=== PATIENT | female | born 1935 | race Caucasian/White ===

== ENCOUNTER 2017-12-28 17:20 | Emergency (ER) | payer MEDICARE ==
[2017-12-28 17:38] VITALS: TEMP 97.3
--- NOTE | 2017-12-28 17:51 | C.PDOC ---
History Of Present Illness 82 year old female, whose PMHx includes HTN (uncertain medicine compliance), presents to the ED for evaluation of headache and dizziness which began earlier today. Patient was upstairs on the floor, visiting her who is sick. She denies fever, chills, and has no other complaints at this time. Time Seen by Provider: 12/28/17 17:47 Chief Complaint (Nursing): High Blood Pressure History Per: Patient History/Exam Limitations: no limitations Onset/Duration Of Symptoms: Hrs Current Symptoms Are (Timing): Still Present Associated Symptoms: Dizziness, Headache Additional History Per: Patient Past Medical History Reviewed: Historical Data, Nursing Documentation, Vital Signs Vital Signs: Last Vital Signs Temp 97.3 F L 12/28/17 17:35 Pulse 78 12/28/17 19:53 Resp 20 12/28/17 19:53 BP 160/74 H 12/28/17 19:53 Pulse Ox 100 12/28/17 19:53 - Medical History PMH: HTN Family History: States: Unknown Family Hx - Social History Hx Alcohol Use: No Hx Substance Use: No - Immunization History Hx Tetanus Toxoid Vaccination: No Hx Influenza Vaccination: No Hx Pneumococcal Vaccination: No Review Of Systems Constitutional: Negative for: Fever, Chills Neurological: Positive for: Headache, Dizziness Physical Exam - Physical Exam Appears: Non-toxic, No Acute Distress Skin: Normal Color, Warm, Dry Head: Atraumatic, Normacephalic Eye(s): bilateral: Normal Inspection Oral Mucosa: Moist Neck: Supple Chest: Symmetrical, No Deformity, No Tenderness Cardiovascular: Rhythm Regular, No Murmur Respiratory: Normal Breath Sounds, No Rales, No Rhonchi, No Wheezing Extremity: Normal ROM, Capillary Refill (less than 2 seconds ) Neurological/Psych: Oriented x3, Normal Speech, Normal Cognition Gait: Steady ED Course And Treatment - Laboratory Results Result Diagrams: 12/28/17 17:59 12/28/17 17:59 ECG: Interpreted By Me, Viewed By Me ECG Rhythm: Sinus Rhythm Interpretation Of ECG: Normal Sinus Rhythm at rate 72bpm. No ST/T wave changes. Rate From EC O2 Sat by Pulse Oximetry: 99 (on RA ) Pulse Ox Interpretation: Normal Medical Decision Making Medical Decision Making: r/o htn urgency vs emergency - labs pending Progress: Bloodwork, EKG, CT Head ordered and reviewed. Apresoline IVP administered. pt reassesed b/p decresasing. pt states she feels well. asking for dc. neuro intact. Disposition - Disposition Disposition: HOME/ ROUTINE Disposition Time: 19:41 Condition: STABLE Additional Instructions: please follow up with your doctor. return to er with worsening symptoms or concerns. Prescriptions: Lisinopril [Zestril] 40 mg PO DAILY #10 tab Instructions: High Blood Pressure (DC), Dizziness, Nonvertigo, (DC) Forms: [employer] ([employer]) - Clinical Impression Clinical Impression: Hypertension, Dizziness - Scribe Statement The provider has reviewed the documentation as recorded by the Scribe (Susan Carney) Provider Attestation: All medical record entries made by the Scribe were at my direction and personally dictated by me. I have reviewed the chart and agree that the record accurately reflects my personal performance of the history, physical exam, medical decision making, and the department course for this patient. I have also personally directed, reviewed, and agree with the discharge instructions and disposition.
[2017-12-28 18:01] LABS: BASO # 0.1 K/uL (0.0-0.2); BASO % 0.9 % (0.0-2.0); EOS # 0.1 K/uL (0.0-0.7); EOS % 1.2 % (0.0-4.0); HEMOGLOBIN 12.6 g/dL (11.0-16.0); LYMPH # 2.4 K/uL (1.0-4.3); LYMPH % 37.4 % (20.0-40.0); MEAN CELL VOLUME 86.9 fL (81.0-99.0); MEAN CORPUSCULAR HEMOGLOBIN 28.9 pg (27.0-31.0); MEAN CORPUSCULAR HGB CONC 33.3 g/dL (33.0-37.0); MEAN PLATELET VOLUME 9.1 fL (7.2-11.7); MONO # 0.5 K/uL (0.0-0.8); MONO % 7.3 % (0.0-10.0); NEUT # 3.5 K/uL (1.8-7.0); NEUT % 53.2 % (50.0-75.0); NRBC % 0.1 % (0.0-2.0); RBC 4.35 Mil/uL (3.80-5.20); WHITE BLOOD COUNT 6.5 K/uL (4.8-10.8)
[2017-12-28 18:09] LABS: INR 0.9; PROTHROMBIN TIME 9.4 SECONDS (9.7-12.2)
[2017-12-28 18:14] LABS: GFR AFRICAN-AMERICAN > 60; GFR NON-AFRICAN AMERICAN 53
[2017-12-28 18:15] LABS: ALBUMIN 4.4 g/dL (3.5-5.0); BLOOD UREA NITROGEN 21 mg/dL (7-17)
[2017-12-28 18:16] LABS: ALB/GLOB RATIO 1.2 (1.0-2.1); ALT/SGPT 16 U/L (9-52); AST/SGOT 39 U/L (14-36)
--- NOTE | 2017-12-28 18:57 | CT ---
PROCEDURE: CT HEAD WITHOUT CONTRAST. HISTORY: Headache COMPARISON: None available. TECHNIQUE: Axial computed tomography images were obtained through the head/brain without intravenous contrast. Note that the examination is limited due to significant streak and beam hardening artifact which mm arises from metallic dear ring and results in streak and beam hardening artifact partially obscuring the level of the inferior the facial soft tissues more so on the right side as well as a portion of the foramen magnum and contents. Radiation dose: Total exam DLP = 670.94 mGy-cm. This CT exam was performed using one or more of the following dose reduction techniques: Automated exposure control, adjustment of the mA and/or kV according to patient size, and/or use of iterative reconstruction technique. FINDINGS: HEMORRHAGE: No acute parenchymal, subarachnoid or extra-axial hemorrhage. BRAIN: There are mild to moderate diffuse/confluent chronic periventricular white matter ischemic changes seen extending peripherally into the deep and subcortical white matter both cerebral hemispheres. Additionally, scattered chronic bilateral basal nuclei lacunar type infarcts also felt to be present. There is moderate central volume loss evidenced by disproportionate enlargement of the ventricles compared the sulci Mild vascular calcifications. VENTRICLES: Hydrocephalus ex vacuo. CALVARIUM: No acute calvarial fractures PARANASAL SINUSES: Unremarkable as visualized. No significant inflammatory changes. MASTOID AIR CELLS: Unremarkable as visualized. No inflammatory changes. OTHER FINDINGS: None. IMPRESSION: Slightly limited study due to crossing streak and beam hardening artifact as detailed above. No acute intracranial hemorrhage. Mild chronic white matter and basal nuclei ischemic changes. Moderate to fairly significant central volume loss.
[2017-12-28 19:54] VITALS: BP 160/74; PULSE 78; RESP 20
[2017-12-28 21:13] VITALS: O2SAT 99
== END 2017-12-28 20:05 | disposition home or self-care (01) ==
LOC: C.ER 17:20
DX: I10 Essential (primary) hypertension (principal); R42 Dizziness and giddiness
CPT/HCPCS: 70450; 80053; 84484; 85025; 85610; 85730; 96374; 99285; J0360

== ENCOUNTER 2018-12-25 22:19 | Inpatient (IN) | payer MEDICARE ==
--- NOTE | 2018-12-25 22:59 | C.PDOC ---
History Of Present Illness 83 year old female is brought to the ED by EMS for evaluation. Patient was found on the floor of her home by EMS. Patient's neighbors have not seen her all day and called EMS. Patient usually more active and self caring. Patient denies OC, however reports tripping and falling sustained abrasion to tight shoulder and hip. Patient incontinent of urine, reports she was unable to get up and move to go to the bathroom. Patient denies fever, chills, nausea, vomit, weakness, numbness. Time Seen by Provider: 12/25/18 22:59 Chief Complaint (Nursing): Medical Clearance History Per: Patient, EMS History/Exam Limitations: no limitations Onset/Duration Of Symptoms: Hrs Current Symptoms Are (Timing): Still Present Recent travel outside of the [place]: No Additional History Per: Patient, EMS Past Medical History Reviewed: Historical Data, Nursing Documentation, Vital Signs Vital Signs: Last Vital Signs Temp 97.8 F 12/25/18 22:37 Pulse 81 12/25/18 22:37 Resp 22 12/25/18 22:37 BP 150/87 12/25/18 22:37 Pulse Ox 97 12/25/18 22:37 - Medical History PMH: HTN Surgical History: No Surg Hx Family History: States: Unknown Family Hx - Social History Hx Alcohol Use: No Hx Substance Use: No - Immunization History Hx Tetanus Toxoid Vaccination: No Hx Influenza Vaccination: No Hx Pneumococcal Vaccination: No Review Of Systems Constitutional: Positive for: Malaise. Negative for: Fever, Chills Cardiovascular: Negative for: Chest Pain, Palpitations Respiratory: Negative for: Shortness of Breath Gastrointestinal: Negative for: Nausea, Vomiting, Abdominal Pain Genitourinary: Positive for: Incontinence Musculoskeletal: Positive for: Shoulder Pain, Leg Pain Skin: Negative for: Rash Neurological: Negative for: Weakness, Numbness, Headache, Dizziness Physical Exam - Physical Exam Appears: Non-toxic, Other (cachectic) Skin: Warm, Dry, Other (poor turgor) Head: Normacephalic Eye(s): bilateral: Normal Inspection, PERRL, EOMI Oral Mucosa: Moist Neck: Supple Chest: Symmetrical Cardiovascular: Rhythm Regular Respiratory: No Rales, No Rhonchi, No Wheezing Gastrointestinal/Abdominal: Soft, No Tenderness, No Guarding, No Rebound Extremity: Tenderness (right shoulder), Capillary Refill (< 2 seconds), No Swelling, Other (right shoulder and right hip abrasions) Extremity: Bilateral: Normal ROM Pulses: Left Dorsalis Pedis: Normal, Right Dorsalis Pedis: Normal Neurological/Psych: Oriented x3, Normal Speech, Normal Cognition Gait: Unable To Assess ED Course And Treatment - Laboratory Results Result Diagrams: 12/25/18 23:59 12/25/18 23:59 ECG: Interpreted By Me, Viewed By Me ECG Rhythm: Sinus Rhythm (82), Nonspecific Changes O2 Sat by Pulse Oximetry: 97 (On RA) Pulse Ox Interpretation: Normal - Radiology CXR: Interpreted by Me, Viewed By Me CXR Interpretation: No: Infiltrates, Fracture, Pnemothorax - Other Rad humerus X-Ray: Interpreted by Me, Viewed By Me Interpretation: no fx or dislocation - CT Scan/US CT head Other Rad Studies (CT/US): Read By Radiologist, Radiology Report Reviewed CT/US Interpretation: CT scan of the head. CLINICAL HISTORY: Fall. TECHNIQUE: Multiple axial CT images were obtained through the brain without IV contrast material. COMMENTS: There is normal configuration of sella turcica. There are no intra or extra-axial collections. There is no mass effect or midline shift. There is no evidence of hematoma formation. No hydrocephalus is present. The ventricles are symmetrical. No abnormal calcifications are present. There is diffuse age-appropriate cerebellar and cerebral atrophy with proportionally d ilated ventricles and cortical sulci. There are bilateral periventricular and subcortical white matter hypolucencies compatible with mild chronic microvascular disease. Otherwise, no significant focal abnormalities are seen either in the posterior fossa or supratentorial compartment. IMPRESSION: 1. Age-appropriate cerebellar and cerebral atrophy. 2. Mild chronic microvascular disease. 3. No evidence of acute intracranial pathology. Thank you for your kind referral of this patient. . Electronically signed on Dec 26, 2018 2:34:57 AM EDT by: Noe Sutton M.D., Certified by DAPHNE, MSK, Neuroradiology CT Other Rad Studies (CT/US): Read By Radiologist, Radiology Report Reviewed CT/US Interpretation: CT OF THE CHEST WITH IV CONTRAST. CLINICAL HISTORY: Trauma. TECHNIQUE: Axial and reformatted sagittal and coronal images of the chest obtained after bolus IV contrast administration. FINDINGS: Moderate osteopenia of the bones. Acute compression fracture of T12 vertebral body. The maximum loss of height is estimated at 86%. Secondary mild retropulsion of the posterior of T11. Subsequent 15% narrowing of the corresponding aspect of the spinal canal without high-grade stenosis or significant compression of the adjacent fat. Enlargement pulmonary arteries suggestive of pulmonary arterial hypertension. Mild cardiomegaly. Normal enhancement of the main pulmonary artery and right and left pulmonary arteries. Normal enhancement of the bilateral peripheral pulmonary arteries. There is no demonstrated pulmonary em bolism. Normal thoracic aorta and visualized great vessels. There is no demonstrated aortic dissection. Normal pericardium. Normal mediastinum. Normal hilar regions. Normal visualized trachea and thickened bronchi. Bilateral basilar atelectatic pulmonary changes. Normal pleura. Normal chest wall structures. Normal osseous structures. Normal visualized upper abdomen. IMPRESSION: Severe acute compression fracture of T11. Osteopenia. Cardiomegaly. Small sliding-type hernia. Bilateral basilar atelectatic changes. Bronchitis, probably chronic. CT SCAN OF THE ABDOMEN AND PELVIS WITH CONTRAST. CLINICAL HISTORY: Abdominal pain. Fall. TECHNIQUE: Multiple axial and coronal CT images were obtained through the abdomen and pelvis after administration of intravenous contrast material. COMMENTS: 4.7 cm left renal simple cyst. Mild osteopenia. Moderate chronic compression deformity of L3 vertebral body with a maximum loss of height estimated at 41%. Moderate amount of fecal residue is noted in the large bowel, constipation. The liver is of uniform attenuation without mass or defect. There is no intra or extrahepatic biliary ductal dilatation. The spleen is normal. The gallbladder is within normal limits. The pancreas is of normal contour and attenuation characteristics . There is no evidence of adrenal mass. Both kidneys demonstrate prompt and equal nephrograms. The kidneys are normal in size, shape and configuration. There is no evidence of renal or ureteral mass. No renal or ureteral calculi are identified. There is no hydroureter or hydronephrosis. No evidence for appendicitis. There is no bowel wall thickening. No evidence for small or large bowel obstruction. There is no evidence of abdominal ascites or lymphadenopathy. There is no evidence of intrinsic or extrinsic bladder mass. There is no pelvic ascites or lymphadenopathy. Images of the lung bases show no evidence of pleural or parenchymal mass. There are no pleural effusions. The bony structures are free of lytic or blastic lesions. IMPRESSION: No evidence of acute abdominal or pelvic pathology. Thank you for your kind referral of this patient. . Electronically signed on Dec 26, 2018 3:16:23 AM EDT by: Noe Sutton M.D., Certified by ABR, MSK, Neuroradiology Progress Note: Plan: - Labs. - CT head. - CT chest. - EKG. - Labs. - CXR. - IV fluids. - UA Disposition Discussed With Dr.: Alejandro Valdivia Comment: accepted the pt on his service and took over the care at 4:21 AM Doctor Will See Patient In The: Hospital Counseled Patient/Family Regarding: Studies Performed, Diagnosis - Disposition Disposition: HOSPITALIZED Disposition Time: 22:59 Condition: FAIR Forms: [employer] ([employer]) - POA Present On Arrival: Falls Or Trauma - Clinical Impression Clinical Impression: Fall, Rhabdomyolysis, Compression fracture of T11 vertebra, Ambulatory dysfunction, Dehydration - Scribe Statement The provider has reviewed the documentation as recorded by the Scribe Iglesia Banks All medical record entries made by the Scribe were at my direction and personally dictated by me. I have reviewed the chart and agree that the record accurately reflects my personal performance of the history, physical exam, medical decision making, and the department course for this patient. I have also personally directed, reviewed, and agree with the discharge instructions and disposition. Decision To Admit - Pt Status Changed To: Hospital Disposition Of: Inpatient - Admit Certification Admit to Inpatient:: After my assessment, the patient will require hospitalization for at least two midnights. This is because of the severity of symptoms shown, intensity of services needed, and/or the medical risk in this patient being treated as an outpatient. - InPatient: Physician Admission Certification: I certify that this patient requires 2 or more midnights of care for the following reason:: After my assessment, the patient will require hospitalization for at least two midnights. This is because of the severity of symptoms shown, intensity of services needed, and/or the medical risk in this patient being treated as an outpatient. - . Bed Request Type: Telemetry Admitting Physician: Alejandro Valdivia Patient Diagnosis: Fall, Rhabdomyolysis, Compression fracture of T11 vertebra, Ambulatory dysfunction, Dehydration
[2018-12-25] MEDS ORDERED: Sodium Chloride 0.9% 1,000 ML IV SCH (23:15)
[2018-12-25] MEDS ORDERED: Iodixanol 320 MG/ML 100 ML BOTTLE IV ONE (23:47)
[2018-12-26 00:24] LABS: BASO % 0.2 % (0.0-2.0); HEMOGLOBIN 14.4 g/dL (11.0-16.0); LYMPH # 0.5 K/uL (1.0-4.3); LYMPH % 4.5 % (20.0-40.0); MEAN CORPUSCULAR HEMOGLOBIN 29.5 pg (27.0-31.0); MEAN CORPUSCULAR HGB CONC 33.2 g/dL (33.0-37.0); MEAN PLATELET VOLUME 9.2 fL (7.2-11.7); MONO # 0.6 K/uL (0.0-0.8); NEUT # 10.9 K/uL (1.8-7.0); NEUT % 90.3 % (50.0-75.0); NRBC % 0.1 % (0.0-2.0); PLATELET COUNT 267 K/uL (130-400); RBC 4.88 Mil/uL (3.80-5.20)
[2018-12-26 00:35] LABS: PROTHROMBIN TIME 11.9 SECONDS (9.7-12.2)
[2018-12-26 00:36] LABS: INR 1.1; MEAN CELL VOLUME 88.9 fL (81.0-99.0); WHITE BLOOD COUNT 12.1 K/uL (4.8-10.8)
[2018-12-26 00:41] LABS: VENOUS BLOOD GAS BASE EXCESS 2.2 mmol/L (0.0-2.0); VENOUS BLOOD GAS PCO2 43 mmHg (40-60); VENOUS BLOOD GAS PO2 25 mm/Hg (30-55); VENOUS BLOOD PH 7.41 (7.32-7.43)
[2018-12-26 00:56] LABS: HYPERSEGMENTATION PRESENT; LYMPHOCYTE 5 % (20-40); MONOCYTE 7 % (0-10); NEUTROPHIL 88 % (50-75); PLATELET ESTIMATE NORMAL (NORMAL); TOTAL CELLS COUNTED 100
[2018-12-26 01:20] LABS: ALB/GLOB RATIO 1.4 (1.0-2.1); ALBUMIN 4.7 g/dL (3.5-5.0); CALCIUM 10.1 mg/dl (8.6-10.4)
[2018-12-26] MEDS ORDERED: Sodium Chloride 0.9% 1,000 ML IV SCH (01:42)
[2018-12-26] MEDS: Lactated Ringer's 1,000 ML IV SCH ×3 (04:50→21:08)
--- NOTE | 2018-12-26 08:19 | RAD ---
PROCEDURE: Radiographs of the right humerus. HISTORY: fall COMPARISON: None. FINDINGS: BONES: Generalized osteopenia.. No fracture or focal lesion. Mild spurring at the elbow level. SOFT TISSUES: Normal. OTHER FINDINGS: None. IMPRESSION: No fracture or dislocation. Generalized osteopenia and degenerative changes-elbow level Comments: No preliminary ER impression at this time. stacie
--- NOTE | 2018-12-26 08:21 | RAD ---
Date of service: 12/26/2018 HISTORY: r/o infiltrate bed 12 COMPARISON: No prior. FINDINGS: LUNGS: No active pulmonary disease. PLEURA: No significant pleural effusion identified, no pneumothorax apparent. CARDIOVASCULAR: There is presence of aortic atherosclerotic calcification on x-ray. Tortuous thoracic aorta. Mild cardiomegaly no pulmonary vascular congestion. OSSEOUS STRUCTURES: Generalized osteopenia. Bilateral shoulder arthrosis. VISUALIZED UPPER ABDOMEN: Normal. OTHER FINDINGS: None. IMPRESSION: No consolidation. Top-normal right hilar markings probably within normal limits. Other findings as above.
--- NOTE | 2018-12-26 08:24 | CT ---
Date of service: 12/26/2018 PROCEDURE: CT HEAD WITHOUT CONTRAST. HISTORY: Headache. Evaluate for hemorrhage. COMPARISON: None available. TECHNIQUE: Axial computed tomography images were obtained through the head/brain without intravenous contrast. Radiation dose: Total exam DLP = 1143.03 mGy-cm. This CT exam was performed using one or more of the following dose reduction techniques: Automated exposure control, adjustment of the mA and/or kV according to patient size, and/or use of iterative reconstruction technique. FINDINGS: HEMORRHAGE: No intracranial hemorrhage. BRAIN: No mass effect or edema. Scattered focal lucencies in the subcortical and periventricular white matter suggestive for chronic microvascular ischemic change. Diffuse generalized parenchymal atrophy. Hydrocephalus ex vacuo. Bilateral basal ganglia lacunar infarcts. VENTRICLES: Hydrocephalus ex vacuo. CALVARIUM: Unremarkable. PARANASAL SINUSES: Unremarkable as visualized. No significant inflammatory changes. MASTOID AIR CELLS: Unremarkable as visualized. No inflammatory changes. OTHER FINDINGS: Atherosclerotic intracranial arterial calcifications. IMPRESSION: Diffuse generalized parenchymal volume loss. Chronic microvascular ischemic change. Hydrocephalus ex vacuo. Bilateral basal ganglia lacunar infarcts. If symptoms persists, consider correlation with MRI. A preliminary report was generated at 2:34 a.m. on 12/26/[address] Noe Sutton from [employer]
[2018-12-26] MEDS: Enoxaparin 40 mg Syringe SC SCH (10:29)
[2018-12-26 11:24] LABS: BASO % 0.3 % (0.0-2.0); EOS % 0.2 % (0.0-4.0); HEMOGLOBIN 13.6 g/dL (11.0-16.0); LYMPH # 1.6 K/uL (1.0-4.3); LYMPH % 12.5 % (20.0-40.0); MEAN CELL VOLUME 90.3 fL (81.0-99.0); MEAN CORPUSCULAR HEMOGLOBIN 29.9 pg (27.0-31.0); MEAN CORPUSCULAR HGB CONC 33.1 g/dL (33.0-37.0); MEAN PLATELET VOLUME 9.4 fL (7.2-11.7); MONO # 1.1 K/uL (0.0-0.8); MONO % 8.8 % (0.0-10.0); NEUT % 78.2 % (50.0-75.0); RBC 4.55 Mil/uL (3.80-5.20); RED CELL DISTRIBUTION WIDTH 14.1 % (11.5-14.5); WHITE BLOOD COUNT 12.7 K/uL (4.8-10.8)
[2018-12-26 12:58] LABS: ALB/GLOB RATIO 1.4 (1.0-2.1); ALBUMIN 4.3 g/dL (3.5-5.0); CALCIUM 9.9 mg/dl (8.6-10.4)
--- NOTE | 2018-12-26 13:52 | CT ---
Date of service: 12/26/2018 PROCEDURE: CT Chest, Abdomen and Pelvis with intravenous contrast HISTORY: fall COMPARISON: None available. TECHNIQUE: IV dose administered: 100 cc of Visipaque Radiation dose: Total exam DLP = 422.35 mGy-cm. This CT exam was performed using one or more of the following dose reduction techniques: Automated exposure control, adjustment of the mA and/or kV according to patient size, and/or use of iterative reconstruction technique. FINDINGS: CT CHEST WITH CONTRAST: LUNGS: Clear. No nodule, mass or consolidation. There is some linear scarring in the right middle lobe. MEDIASTINUM: Unremarkable. Normal caliber aorta and pulmonary arterial trunk. No aortic dissection. Normal size heart. Aortic calcification LYMPH NODES: Unremarkable. PLEURA: Unremarkable. No pneumothorax. No pleural fluid. BONES: There is a severe compression fracture of T11. This is probably acute. There are no prior studies for comparison. There is a mild compression deformity of L3 OTHER FINDINGS: None. CT ABDOMEN AND PELVIS: LIVER: Unremarkable. No gross lesion or ductal dilatation. GALLBLADDER AND BILE DUCTS: Unremarkable. PANCREAS: Unremarkable. No gross lesion or ductal dilatation. SPLEEN: Unremarkable. ADRENALS: Unremarkable. No mass. KIDNEYS AND URETERS: Unremarkable. No hydronephrosis. No solid mass. VASCULATURE: No aortic atherosclerotic calcification or mural plaque present. Unremarkable. No aortic aneurysm. BOWEL: Unremarkable. No obstruction. No gross mural thickening. APPENDIX: Normal appendix. PERITONEUM: Unremarkable. No free fluid. No free air. LYMPH NODES: Unremarkable. No enlarged lymph nodes. BLADDER: Unremarkable. REPRODUCTIVE: Unremarkable. BONES: As above OTHER FINDINGS: The report concurs with the preliminary [facility] report IMPRESSION: There is a severe compression fracture of T11. This is probably acute. There are no prior studies for comparison. There is a mild compression deformity of L3
--- NOTE | 2018-12-26 18:52 | CARD ---
APPROVED REPORT Date of service: 12/25/2018 EKG Measurement Heart [id number] <Conclusion> Normal sinus rhythm Nonspecific ST and T wave abnormality Abnormal ECG
[2018-12-26 20:51] LABS: SQUAMOUS EPITHIAL 5 /hpf (0-5); URINE BILIRUBIN NEGATIVE (NEGATIVE); URINE BLOOD 2+ (NEGATIVE); URINE CLARITY Hazy (Clear); URINE COLOR Amber (YELLOW); URINE GLUCOSE (UA) NORMAL (Normal); URINE LEUKOCYTE ESTERASE NEG Leu/uL (Negative); URINE PROTEIN 2+ mg/dL (NEGATIVE)
--- NOTE | 2018-12-26 22:54 | CP.PCM.HP ---
Present on Admission - Present on Admission Any Indicators Present on Admission: No Past Patient History - Past Medical History & Family History Past Medical History?: Yes - Past Social History Smoking Status: unable to - CARDIAC Hx Hypertension: Yes - MUSCULOSKELETAL/RHEUMATOLOGICAL Hx Falls: No - PSYCHIATRIC Hx Substance Use: No - SURGICAL HISTORY Hx Surgeries: No - ANESTHESIA Hx Anesthesia: No Hx Anesthesia Reactions: No Hx Malignant Hyperthermia: No Has any member of the family had a problem w/ anesthesia?: No Meds Allergies/Adverse Reactions: Allergies Allergy/AdvReac Type Severity Reaction Status Date / Time No Known Allergies Allergy Verified 12/28/17 17:34 Results - Vital Signs Recent Vital Signs: Last Vital Signs Temp 98 F 12/26/18 15:00 Pulse 93 H 12/26/18 15:00 Resp 20 12/26/18 15:00 BP 108/53 L 12/26/18 15:00 Pulse Ox 96 12/26/18 15:00 - Labs Result Diagrams: 12/26/18 11:11 12/26/18 11:11 Labs: Laboratory Results - last 24 hr 12/25/18 12/25/18 12/25/18 23:09 23:59 23:59 WBC 12.1 H D RBC 4.88 Hgb 14.4 Hct 43.4 MCV 88.9 D MCH 29.5 MCHC 33.2 RDW 14.0 Plt Count 267 MPV 9.2 Neut % (Auto) 90.3 H Lymph % (Auto) 4.5 L [place] % (Auto) 5.0 Eos % (Auto) 0.0 Baso % (Auto) 0.2 Neut # (Auto) 10.9 H Lymph # (Auto) 0.5 L [place] # (Auto) 0.6 Eos # (Auto) 0.0 Baso # (Auto) 0.0 Neutrophils % (Manual) 88 H Lymphocytes % (Manual) 5 L Monocytes % (Manual) 7 Hypersegmented Polys Present Platelet Estimate Normal PT 11.9 INR 1.1 APTT 31 pO2 VBG pH VBG pCO2 VBG HCO3 VBG Total CO2 VBG O2 Sat (Calc) VBG Base Excess VBG Potassium Glucose Lactate Crit Value Called To Crit Value Called By Crit Value Read Back Blood Gas Notified Time Sodium Potassium Chloride Carbon Dioxide Anion Gap BUN Creatinine Est GFR ( Amer) Est GFR (Non-Af Amer) Random Glucose Calcium Magnesium Total Bilirubin AST ALT Alkaline Phosphatase Total Creatine Kinase Total Protein Albumin Globulin Albumin/Globulin Ratio Lipase Venous Blood Potassium Urine Color Urine Clarity Urine pH Ur Specific [place] Urine Protein Urine Glucose (UA) Urine Ketones Urine Blood Urine Nitrate Urine Bilirubin Urine Urobilinogen Ur Leukocyte Esterase Urine WBC (Auto) Urine RBC (Auto) Ur Squamous Epith Cells Blood Type A POSITIVE Antibody Screen Negative 12/25/18 12/26/18 12/26/18 23:59 00:29 11:11 WBC 12.7 H RBC 4.55 Hgb 13.6 Hct 41.1 MCV 90.3 MCH 29.9 MCHC 33.1 RDW 14.1 Plt Count 262 MPV 9.4 Neut % (Auto) 78.2 H Lymph % (Auto) 12.5 L [place] % (Auto) 8.8 Eos % (Auto) 0.2 Baso % (Auto) 0.3 Neut # (Auto) 10.0 H Lymph # (Auto) 1.6 [place] # (Auto) 1.1 H Eos # (Auto) 0.0 Baso # (Auto) 0.0 Neutrophils % (Manual) Lymphocytes % (Manual) Monocytes % (Manual) Hypersegmented Polys Platelet Estimate PT INR APTT pO2 25 L VBG pH 7.41 VBG pCO2 43 VBG HCO3 25.2 VBG Total CO2 28.6 H VBG O2 Sat (Calc) 47.0 VBG Base Excess 2.2 H VBG Potassium 7.1 H* Glucose 136 H Lactate 1.8 Crit Value Called To Melyssa roach rn Crit Value Called By Vanessa castro rt Crit Value Read Back Y Blood Gas Notified Time 41 Sodium 142 138.0 Potassium 3.7 Chloride 102 107.0 Carbon Dioxide 26 Anion Gap 18 BUN 44 H Creatinine 1.1 Est GFR ( Amer) 57 Est GFR (Non-Af Amer) 47 Random Glucose 151 H D Calcium 10.1 Magnesium 2.5 H Total Bilirubin 1.4 H AST 53 H D ALT 19 Alkaline Phosphatase 71 Total Creatine Kinase 692 H Total Protein 8.0 Albumin 4.7 Globulin 3.3 Albumin/Globulin Ratio 1.4 Lipase 78 Venous Blood Potassium 7.1 H* Urine Color Urine Clarity Urine pH Ur Specific [place] Urine Protein Urine Glucose (UA) Urine Ketones Urine Blood Urine Nitrate Urine Bilirubin Urine Urobilinogen Ur Leukocyte Esterase Urine WBC (Auto) Urine RBC (Auto) Ur Squamous Epith Cells Blood Type Antibody Screen 03/20/19 03/20/19 11:11 20:34 WBC RBC Hgb Hct MCV MCH MCHC RDW Plt Count MPV Neut % (Auto) Lymph % (Auto) [place] % (Auto) Eos % (Auto) Baso % (Auto) Neut # (Auto) Lymph # (Auto) [place] # (Auto) Eos # (Auto) Baso # (Auto) Neutrophils % (Manual) Lymphocytes % (Manual) Monocytes % (Manual) Hypersegmented Polys Platelet Estimate PT INR APTT pO2 VBG pH VBG pCO2 VBG HCO3 VBG Total CO2 VBG O2 Sat (Calc) VBG Base Excess VBG Potassium Glucose Lactate Crit Value Called To Crit Value Called By Crit Value Read Back Blood Gas Notified Time Sodium 141 Potassium 3.8 Chloride 105 Carbon Dioxide 24 Anion Gap 16 BUN 50 H Creatinine 1.2 Est GFR ( Amer) 52 Est GFR (Non-Af Amer) 43 Random Glucose 121 H Calcium 9.9 Magnesium Total Bilirubin 1.2 AST 41 H D ALT 23 Alkaline Phosphatase 66 Total Creatine Kinase 455 H Total Protein 7.5 Albumin 4.3 Globulin 3.1 Albumin/Globulin Ratio 1.4 Lipase Venous Blood Potassium Urine Color Lindy Urine Clarity Hazy Urine pH 5.0 Ur Specific [place] 1.030 Urine Protein 2+ H Urine Glucose (UA) Normal Urine Ketones Trace Urine Blood 2+ H Urine Nitrate Negative Urine Bilirubin Negative Urine Urobilinogen 2.0 H Ur Leukocyte Esterase Neg Urine WBC (Auto) 3 Urine RBC (Auto) 14 H Ur Squamous Epith Cells 5 Blood Type Antibody Screen
--- NOTE | 2018-12-27 07:24 | HP ---
CHIEF COMPLAINT: The patient was found on the floor by EMS. HISTORY OF PRESENT ILLNESS: This is an 83-year-old white female who is currently confused. She is disoriented to time, place, person, and no details are available. No family member is available, and according to the EMS, the patient was found on the floor by EMS. The patient's neighbors did not see her for the last one day and they called ambulance and the patient was brought into the emergency room. She is confused. She is restless. She is not eating, drinking, no fever. No signs of respiratory distress. The patient has been able to take activities of daily living on herself, and according to some information provided by the patient, she tripped and fell and she sustained a bruise to the right shoulder and hip. The patient is incontinent of urine and she is not able to give any further information, but as per ER, there is no history of nausea, vomiting, fever, chills, rigors reported. No further details obtainable. PAST MEDICAL HISTORY: Hypertension. SOCIAL HISTORY: Nonsmoker, non-EtOH user. CURRENT MEDICATIONS: Unknown. FAMILY HISTORY: Not obtainable. PHYSICAL EXAMINATION: GENERAL: An elderly female, in no acute distress. SKIN: No rashes. No bruises. No purpura. No petechiae. HEENT: Head atraumatic, normocephalic. Negative pallor. No icterus or jaundice. Extraocular movements are intact. NECK: Supple. No JVD. No lymph node. No thyromegaly. No carotid bruit. CHEST WALL: Bilateral symmetrical expansion. No tenderness. No deformity. LUNGS: Bilaterally clear. No rales. No rhonchi. CARDIOVASCULAR SYSTEM: PMI, fifth intercostal space. S1, S2, regular. No heave or thrill. ABDOMEN: Soft, nontender. Bowel sounds are positive. RECTAL AND PELVIS: Deferred. EXTREMITIES: No clubbing, cyanosis, or edema. 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 She moves all extremities. Does not follow commands. ASSESSMENT: 1. Fall with rhabdomyolysis. 2. Dehydration. 3. Hypertension. 4. Memory loss. It could be delirium versus dementia. Delirium could be due to underlying sepsis, although it is unlikely to be sepsis. It could be toxic metabolic encephalopathy. It could be underlying Alzheimer's versus vascular dementia. PLAN: Admit. Monitor the patient. Neuro watch and dementia workup. IV fluids and workup on memory loss. Alejandro Valdivia MD
[2018-12-27] MEDS: Enoxaparin 40 mg Syringe SC SCH (13:04)
[2018-12-27 13:15] VITALS: BMI 12.5
--- NOTE | 2018-12-27 15:57 | RAD ---
Date of service: 12/27/2018 PROCEDURE: Bilateral Feet Radiographs. HISTORY: to determine any metal for MRI clearance COMPARISON: None. FINDINGS: Limited examination consists of single AP view of both feet. BONES: Right Foot: Normal. No fracture. Left Foot: Normal. No fracture. JOINTS: Right Foot: Hallux valgus. Bunion. No arthritis. Left Foot: Mild hallux valgus. No arthritis. SOFT TISSUES: Right Foot: No metallic radiopaque foreign body. Left Foot: No metallic radiopaque foreign body. OTHER FINDINGS: None. IMPRESSION: No metallic radiopaque foreign body.
--- NOTE | 2018-12-27 16:21 | CARD ---
APPROVED REPORT Date of service: 12/27/2018 EXAM: Two-dimensional and M-mode echocardiogram with Doppler and color Doppler. INDICATION Dizziness and Vertigo RISK FACTORS Hypertension 2D DIMENSIONS IVSd1.0 (0.7-1.1cm)LVDd4.3 (3.9-5.9cm) PWd1.0 (0.7-1.1cm)LA Rqmfrm17 (18-58mL) LVDs2.5 (2.5-4.0cm)FS (%) 40.5 % LVEF (%)71.6 (>50%)LVEF ([facility])55.62 % M-Mode DIMENSIONS Left Atrium (MM)3.58 (2.5-4.0cm)IVSd0.92 (0.7-1.1cm) Aortic Root3.25 (2.2-3.7cm)LVDd4.95 (4.0-5.6cm) Aortic Cusp Exc.2.04 (1.5-2.0cm)PWd0.67 (0.7-1.1cm) FS (%) 42 %LVDs2.87 (2.0-3.8cm) LVEF (%)73 (>50%) Aortic Valve AI P 1/2 [id number] Mitral Valve MV E Slszkwpk78.0cm/sMV A Owrxntzs469.7cm/sE/A ratio0.6 TDI Lateral E' Peak V4.42cm/sMedial E' Peak V3.06cm/sE/Lateral E'15.4 E/Medial E'22.2 Tricuspid Valve TR Peak Sljofjmj448kq/sTR Peak Gr.[id number] LEFT VENTRICLE The left ventricle is normal size. There is normal left ventricular wall thickness. Left ventricle systolic function is normal. The Ejection Fraction is >70%. There is normal LV segmental wall motion. The left ventricular diastolic function is abnormal. Transmitral Doppler flow pattern is Grade I-abnormal relaxation pattern. No left ventricle thrombus noted on this study. RIGHT VENTRICLE The right ventricle is normal size. The right ventricular systolic function is normal. ATRIA The left atrium size is normal. The right atrium size is normal. AORTIC VALVE The aortic valve is mildly sclerotic. The aortic valve is trileaflet. There is moderate aortic regurgitation. There is no aortic valvular stenosis. There is no aortic valvular vegetation. MITRAL VALVE Mitral annular calcification is mild. There is no evidence of mitral valve prolapse. There is no mitral valve stenosis. Mitral regurgitation is mild. TRICUSPID VALVE The tricuspid valve is normal in structure. There is moderate tricuspid regurgitation. Right ventricular systolic pressure is estimated at 50-60 mmHg. There is moderate pulmonary hypertension. There is no tricuspid valve prolapse or vegetation. There is no tricuspid valve stenosis. PULMONIC VALVE The pulmonic valve is not well visualized. There is trace to mild pulmonic valvular regurgitation. GREAT VESSELS The aortic root is normal in size. The IVC is normal in size and collapses >50% with inspiration. PERICARDIAL EFFUSION There is a trace posterior pericardial effusion. There is no pleural effusion. <Conclusion> The left ventricle is normal size. Left ventricle systolic function is normal. The Ejection Fraction is >70%. The left ventricular diastolic function is abnormal. Transmitral Doppler flow pattern is Grade I-abnormal relaxation pattern. The right ventricle is normal size. The right ventricular systolic function is normal. The left atrium size is normal. The right atrium size is normal. There is moderate aortic regurgitation. Mitral regurgitation is mild. There is moderate tricuspid regurgitation. There is moderate pulmonary hypertension. There is trace to mild pulmonic valvular regurgitation. There is a trace posterior pericardial effusion.
--- NOTE | 2018-12-27 17:08 | RAD ---
Date of service: 12/27/2018 PROCEDURE: Radiographs of the bilateral Tibiae and Fibulae. HISTORY: to determine any metal for MRI clearance COMPARISON: None available. TECHNIQUE: Frontal and lateral views obtained. FINDINGS: BONES: RIGHT TIBIA: No acute fracture or destructive lesion. LEFT TIBIA: No acute fracture or destructive lesion. JOINT SPACES: RIGHT TIBIA: Normal. LEFT TIBIA: Normal. SOFT TISSUES: RIGHT TIBIA: Normal. LEFT TIBIA: Normal. OTHER FINDINGS: None. IMPRESSION: Normal examination. No evidence for metallic foreign body.
[2018-12-27] MEDS: Lactated Ringer's 1,000 ML IV SCH ×2 (20:07→23:25)
--- NOTE | 2018-12-27 21:29 | CP.PCM.CON ---
History of Present Illness - History of Present Illness History of Present Illness: SPINE Consult requested for evaluation of compression fracture(s). Pt confused. MRI ordered to evaluate age of fractures at T11 and L3. T11 appears severly flattened and sclerotic, which would suggest a non-acute injury. Will await [facility] and then do formal consultation. Past Patient History - Past Medical History & Family History Past Medical History?: Yes - Past Social History Smoking Status: unable to - CARDIAC Hx Hypertension: Yes - MUSCULOSKELETAL/RHEUMATOLOGICAL Hx Falls: No - PSYCHIATRIC Hx Substance Use: No - SURGICAL HISTORY Hx Surgeries: No - ANESTHESIA Hx Anesthesia: No Hx Anesthesia Reactions: No Hx Malignant Hyperthermia: No Has any member of the family had a problem w/ anesthesia?: No Meds Allergies/Adverse Reactions: Allergies Allergy/AdvReac Type Severity Reaction Status Date / Time No Known Allergies Allergy Verified 12/28/17 17:34 - Medications Medications: Current Medications Acetaminophen (Tylenol 325mg Tab) 650 mg PO Q6 PRN PRN Reason: Pain, moderate (4-7) Aspirin (Aspirin Chewable) 81 mg PO DAILY [facility] Last Admin: 12/27/18 13:06 Dose: 81 mg Enoxaparin Sodium (Lovenox) 30 mg SC DAILY [facility] Lactated Ringer's (Lactated Ringer's) 1,000 mls @ 70 mls/hr IV .[id number] [facility] Last Admin: 12/27/18 20:07 Dose: 70 mls/hr Lisinopril (Zestril) 5 mg PO DAILY [facility] Last Admin: 12/27/18 13:05 Dose: 5 mg Rosuvastatin Calcium (Crestor) 2.5 mg PO [facility] Senna/Docusate Sodium (Senokot S 50 Mg-8.6 Mg) 1 tab PO DAILY [facility] Results - Vital Signs Recent Vital Signs: Last Vital Signs Temp 98.7 F 12/27/18 15:10 Pulse 79 12/27/18 15:10 Resp 20 12/27/18 15:10 BP 158/65 H 12/27/18 15:10 Pulse Ox 96 12/27/18 15:10 - Labs Result Diagrams: 12/26/18 11:11 12/26/18 11:11
--- NOTE | 2018-12-27 21:58 | CP.PCM.PN ---
Subjective - Date & Time of Evaluation Date of Evaluation: 12/27/18 Time of Evaluation: 08:40 - Subjective Subjective: dictated Objective - Vital Signs/Intake and Output Vital Signs (last 24 hours): Temp Pulse Resp BP Pulse Ox 98.7 F 79 20 158/65 H 96 12/27/18 15:10 12/27/18 15:10 12/27/18 15:10 12/27/18 15:10 12/27/18 15:10 Intake and Output: 12/27/18 12/28/18 18:59 06:59 Intake Total 640 Balance 640 - Medications Medications: Current Medications Acetaminophen (Tylenol 325mg Tab) 650 mg PO Q6 PRN PRN Reason: Pain, moderate (4-7) Aspirin (Aspirin Chewable) 81 mg PO DAILY [facility] Last Admin: 12/27/18 13:06 Dose: 81 mg Enoxaparin Sodium (Lovenox) 30 mg SC DAILY [facility] Lactated Ringer's (Lactated Ringer's) 1,000 mls @ 70 mls/hr IV .[id number] [facility] Last Admin: 12/27/18 20:07 Dose: 70 mls/hr Lisinopril (Zestril) 5 mg PO DAILY [facility] Last Admin: 12/27/18 13:05 Dose: 5 mg Rosuvastatin Calcium (Crestor) 2.5 mg PO HS [facility] Senna/Docusate Sodium (Senokot S 50 Mg-8.6 Mg) 1 tab PO DAILY [facility] - Labs Labs: 12/26/18 11:11 12/26/18 11:11 PT 11.9 SECONDS (9.7-12.2) 12/25/18 23:59 INR 1.1 12/25/18 23:59 APTT 31 SECONDS (21-34) 12/25/18 23:59
[2018-12-27] MEDS: Rosuvastatin Calcium 2.5 mg Tab PO SCH (22:11)
[2018-12-27] MEDS: Docusate-Senna 50 mg-8.6 mg Tab PO SCH (22:12)
--- NOTE | 2018-12-28 00:15 | PN ---
DATE: 12/27/2018 SUBJECTIVE: The patient is confused, agitated, and restless. We could not have an MRI done. She is afebrile. Her oral intake is poor. She is confused. She seems to have underlying dementia. No nausea or vomiting. No chest pain. PHYSICAL EXAMINATION: VITAL SIGNS: Blood pressure 158/65, pulse 79, respiratory rate 20, and temperature 98.7. LUNGS: Clear. CARDIOVASCULAR SYSTEM: S1, S2. Regular. ABDOMEN: Soft. CENTRAL NERVOUS SYSTEM: Agitated, restless, less oriented to time, place, and person and moving all extremities. ASSESSMENT: 1. Spinal fracture. 2. Altered mental status, rule out dementia versus delirium. There could be underlying stroke. 3. Hypertension. PLAN: We will sedate the patient and get the MRI done. In the meantime, we will monitor the patient. Alejandro Valdivia MD
[2018-12-28 08:42] LABS: BASO # 0.1 K/uL (0.0-0.2); BASO % 0.7 % (0.0-2.0); EOS # 0.1 K/uL (0.0-0.7); EOS % 0.7 % (0.0-4.0); LYMPH # 1.4 K/uL (1.0-4.3); LYMPH % 15.7 % (20.0-40.0); MEAN CELL VOLUME 89.1 fL (81.0-99.0); MEAN CORPUSCULAR HEMOGLOBIN 29.8 pg (27.0-31.0); MEAN CORPUSCULAR HGB CONC 33.4 g/dL (33.0-37.0); MEAN PLATELET VOLUME 9.4 fL (7.2-11.7); MONO # 0.7 K/uL (0.0-0.8); MONO % 7.8 % (0.0-10.0); NEUT # 6.7 K/uL (1.8-7.0); NEUT % 75.1 % (50.0-75.0); RBC 3.86 Mil/uL (3.80-5.20); RED CELL DISTRIBUTION WIDTH 13.5 % (11.5-14.5)
[2018-12-28 08:45] LABS: BLOOD UREA NITROGEN 27 mg/dL (7-17); CALCIUM 8.8 mg/dl (8.6-10.4); GFR NON-AFRICAN AMERICAN > 60
[2018-12-28 08:46] LABS: HEMOGLOBIN 11.5 g/dL (11.0-16.0)
[2018-12-28] MEDS: Docusate-Senna 50 mg-8.6 mg Tab PO SCH (09:54)
[2018-12-28] MEDS: Enoxaparin 30 mg Syringe SC SCH (09:54)
--- NOTE | 2018-12-28 12:51 | VASCLAB ---
Date of service: 12/27/2018 PROCEDURE: Carotid Duplex Exam. HISTORY: syncope COMPARISON: None available. TECHNIQUE: Grayscale and duplex Doppler evaluation of the cervical carotid and vertebral arteries were performed. The common carotid, carotid bifurcations and cervical Internal Carotid Artery (ICA) and proximal External Carotid Artery (ECA) were evaluated. The vertebral arteries were evaluated for gross patency and flow direction. Report prepared by Bert Desai, BS, RVT FINDINGS: RIGHT CAROTID ARTERIES: 1. Common Carotid Artery: No significant focal plaque formation of the right common carotid artery. Maximum Peak Systolic velocity: 68 cm/sec: End-diastolic velocity 10 cm/sec. 2. Carotid Bifurcation: plaque formation. Maximum Peak Systolic velocity: 58 cm/sec: End-diastolic velocity 11 cm/sec. 3. Internal Carotid Artery: Plaque description: 3.1. Proximal Segment: Peak systolic velocity 62 cm/sec: End-diastolic velocity 9 cm/sec - % stenosis 0-15% 3.2. Middle Segment: Peak systolic velocity 54 cm/sec: End-diastolic velocity 7 cm/sec - % stenosis 0-15% 3.3. Distal Segment: Peak systolic velocity 117 cm/sec: End-diastolic velocity 19 cm/sec - % stenosis 0-15% 4. External Carotid Artery: No significant focal plaque formation. Peak systolic velocity 95 cm/sec 5. ICA/CCA Ratio: 1.7 LEFT CAROTID ARTERIES: 1. Common Carotid Artery: No significant focal plaque formation of the left common carotid artery. Maximum Peak Systolic velocity: 77 cm/sec: End-diastolic velocity 8 cm/sec. 2. Carotid Bifurcation: plaque formation. Maximum Peak Systolic velocity: 60 cm/sec: End-diastolic velocity 6 cm/sec. 3. Internal Carotid Artery: Plaque description: 3.1. Proximal Segment: Peak systolic velocity 84 cm/sec: End-diastolic velocity 13 cm/sec - % stenosis 0-15% 3.2. Middle Segment: Peak systolic velocity 52 cm/sec: End-diastolic velocity 7 cm/sec - % stenosis 0-15% 3.3. Distal Segment: Peak systolic velocity 39 cm/sec: End-diastolic velocity 7 cm/sec - % stenosis 0-15% 4. External Carotid Artery: No significant focal plaque formation. Peak systolic velocity 92 cm/sec 5. ICA/CCA Ratio: 1.1 VERTEBRAL ARTERIES: 1. Right Vertebral Artery: The right vertebral artery flow direction is antegrade. 2. Left Vertebral Artery: The left vertebral artery flow direction is antegrade. OTHER FINDINGS: 1. Right Brachial Blood pressure: mmHg. 2. Left Brachial Blood pressure: mmHg. 3. No atherosclerotic calcification present IMPRESSION: RIGHT: Duplex scan does not suggest hemodynamically significant stenosis of the right extracranial carotid arteries. LEFT: Duplex scan does not suggest hemodynamically significant stenosis of the left extracranial carotid arteries.
[2018-12-28] MEDS ORDERED: Potassium Chloride 20 mEq/15 ml LIQ UD PO STA (21:55)
--- NOTE | 2018-12-28 21:56 | CP.PCM.PN ---
Subjective - Date & Time of Evaluation Date of Evaluation: 12/28/18 Time of Evaluation: 09:00 - Subjective Subjective: dictated Objective - Vital Signs/Intake and Output Vital Signs (last 24 hours): Temp Pulse Resp BP Pulse Ox 97.5 F L 87 18 126/71 97 12/28/18 15:47 12/28/18 15:47 12/28/18 15:47 12/28/18 15:47 12/28/18 15:47 Intake and Output: 12/28/18 12/29/18 18:59 06:59 Intake Total 560 Balance 560 - Medications Medications: Current Medications Acetaminophen (Tylenol 325mg Tab) 650 mg PO Q6 PRN PRN Reason: Pain, moderate (4-7) Aspirin (Aspirin Chewable) 81 mg PO DAILY [facility] Last Admin: 12/28/18 09:54 Dose: 81 mg Enoxaparin Sodium (Lovenox) 30 mg SC DAILY [facility] Last Admin: 12/28/18 09:54 Dose: 30 mg Lactated Ringer's (Lactated Ringer's) 1,000 mls @ 70 mls/hr IV .[id number] [facility] Last Admin: 12/27/18 23:25 Dose: Not Given Lisinopril (Zestril) 5 mg PO DAILY [facility] Last Admin: 12/28/18 09:54 Dose: 5 mg Lorazepam (Ativan) 1 mg IVP ONCE PRN PRN Reason: Agitation Rosuvastatin Calcium (Crestor) 2.5 mg PO HS [facility] Last Admin: 12/27/18 22:11 Dose: 2.5 mg Senna/Docusate Sodium (Senokot S 50 Mg-8.6 Mg) 1 tab PO DAILY [facility] Last Admin: 12/28/18 09:54 Dose: 1 tab - Labs Labs: 12/28/18 08:05 12/28/18 08:05 PT 11.9 SECONDS (9.7-12.2) 12/25/18 23:59 INR 1.1 12/25/18 23:59 APTT 31 SECONDS (21-34) 12/25/18 23:59
[2018-12-28] MEDS: Rosuvastatin Calcium 2.5 mg Tab PO SCH (22:24)
[2018-12-29 00:09] VITALS: RESP 20
[2018-12-29] MEDS: Lactated Ringer's 1,000 ML IV SCH ×2 (02:06→18:13)
--- NOTE | 2018-12-29 03:46 | PN ---
DATE: 12/28/2018 SUBJECTIVE: The patient is more alert. One of her friends was there who I was able to talk to and get patient's baseline mental status. The patient according to the friend is improving with mental status and her mental status is relatively better. She is able to remember things. She is following commands. She wants to eat. She feels hungry. No fever, no chills. PHYSICAL EXAMINATION: VITAL SIGNS: Blood pressure 126/71, pulse 57, respiratory rate 18, temperature 97.5. LUNGS: Clear. No rales. No rhonchi. CARDIOVASCULAR SYSTEMS: S1, S2. Regular. ABDOMEN: Soft. ASSESSMENT: 1. Alerted mental status, the patient is improving. It was due to fall with toxic metabolic encephalopathy, could be a cerebrovascular accident. 2. Hypokalemia. 3. Dehydration. 4. Hypertension. PLAN: Neuro checks. Fall and seizure precaution, physical therapy, IV fluids, diet, and possible subacute rehab. I spoke to the family members. Alejandro Valdivia MD
[2018-12-29 06:35] LABS: BASO % 0.5 % (0.0-2.0); EOS # 0.1 K/uL (0.0-0.7); EOS % 1.3 % (0.0-4.0); HEMOGLOBIN 12.2 g/dL (11.0-16.0); LYMPH # 1.3 K/uL (1.0-4.3); LYMPH % 18.3 % (20.0-40.0); MEAN CELL VOLUME 89.2 fL (81.0-99.0); MEAN CORPUSCULAR HEMOGLOBIN 29.8 pg (27.0-31.0); MEAN CORPUSCULAR HGB CONC 33.4 g/dL (33.0-37.0); MEAN PLATELET VOLUME 8.8 fL (7.2-11.7); MONO # 0.6 K/uL (0.0-0.8); MONO % 7.6 % (0.0-10.0); NEUT # 5.3 K/uL (1.8-7.0); NEUT % 72.3 % (50.0-75.0); RBC 4.09 Mil/uL (3.80-5.20); RED CELL DISTRIBUTION WIDTH 13.6 % (11.5-14.5); WHITE BLOOD COUNT 7.4 K/uL (4.8-10.8)
[2018-12-29 06:56] LABS: ALB/GLOB RATIO 1.2 (1.0-2.1); ALBUMIN 3.3 g/dL (3.5-5.0); ALT/SGPT 25 U/L (9-52); AST/SGOT 33 U/L (14-36); BLOOD UREA NITROGEN 20 mg/dL (7-17); GFR NON-AFRICAN AMERICAN > 60
[2018-12-29] MEDS: Enoxaparin 30 mg Syringe SC SCH (11:07)
[2018-12-29] MEDS: Docusate-Senna 50 mg-8.6 mg Tab PO SCH (11:07)
--- NOTE | 2018-12-29 14:26 | MRI ---
Date of service: 12/29/2018 PROCEDURE: MR THORACIC SPINE WITHOUT CONTRAST HISTORY: Compression fracture COMPARISON: No prior study available for comparison. TECHNIQUE: Multiecho multiplanar sequences were performed through the thoracic spine without the use of intravenous contrast. FINDINGS: Normal thoracic spinal alignment. Normal thoracic kyphosis. VERTEBRA: There is a subacute-chronic compression fracture of the T11 vertebral body segment which exhibits no near vertebral plana appearance. Associated retropulsion of the posterior cortex more so along the superior margin is also seen which results in canal narrowing and compressive effects on the ventral surface of the thecal sac without significant cord compression.. There is mild kyphotic angulation deformity centered at this level.. There is also acute- subacute compression fracture superior L1 segment with nor significant retropulsed fragments. The remaining vertebral bodies otherwise exhibit normal stature. Vertebral bodies and facets otherwise exhibit normal alignment. Paraspinal soft tissues are also unremarkable. Mild multilevel disc desiccation changes are seen throughout. No disc herniation or significant disc bulge.. Note made of degenerative spondylosis in the lower cervical region. No definitive intrinsic signal changes are seen within the visualized spinal cord. Conus appears to terminate at approximately the lower L1 level. OTHER FINDINGS: None. IMPRESSION: There is a subacute to chronic compression fracture T11 segment with retropulsion of the posterior cortex resulting in mild canal narrowing and compressive effects on the ventral surface of the thecal sac. No significant cord compression. Acute-subacute compression fracture superior L1 endplate with no significant retropulsed fragments.
--- NOTE | 2018-12-29 14:30 | MRI ---
Date of service: 12/29/2018 PROCEDURE: MRI BRAIN WITHOUT CONTRAST HISTORY: AMS COMPARISON: Comparison made with prior CT scan brain 12/26/2018 TECHNIQUE: Multiplanar, multisequence MR images of the brain were obtained without intravenous contrast enhancement. FINDINGS: Study is limited by motion artifact. HEMORRHAGE: No acute parenchymal, subarachnoid or extra-axial hemorrhage. No evidence of hemosiderin deposition seen on gradient echo weighted sequence. DWI: No evidence of an acute or early subacute infarction. BRAIN PARENCHYMA: Seen to better advantage are mild diffuse/confluent chronic periventricular white matter ischemic changes extending into the deep and subcortical white matter both cerebral hemispheres. Multiple more discrete chronic appearing lacunar type infarcts also seen scattered about the deep and subcortical white matter as well as both basal nuclei. Moderate central volume loss evidenced by disproportionate enlargement of the ventricles compared the sulci. VENTRICLES: Dilatation 3rd and lateral ventricles unchanged. CRANIUM: Unremarkable. ORBITS: Orbits and contents unremarkable PARANASAL SINUSES/MASTOIDS: Clear VASCULAR SYSTEM: Visualized major vascular flow voids at skull base patent. OTHER FINDINGS: None. IMPRESSION: No acute intracranial hemorrhage or infarct. Chronic white matter basal nuclei ischemic changes. Moderate central volume loss evidenced by disproportion enlargement of the ventricles compared the sulci.
--- NOTE | 2018-12-29 14:36 | MRI ---
Date of service: 12/29/2018 PROCEDURE: MR LUMBAR SPINE WITHOUT CONTRAST HISTORY: s/p fall COMPARISON: None available. TECHNIQUE: Multiecho multiplanar sequences were performed through the lumbar spine without the use of intravenous contrast. FINDINGS: There is 5 mm degenerative retrolisthesis of L3 on L4. There is normal lumbar lordosis. There is an acute superior endplate compression fracture in the L1 vertebral body with approximately 10 percent loss of vertebral height and associated edema/contusion in the mid and lower 3rd of the L1 vertebral body. There is no evidence for retropulsion. There is a chronic inferior endplate compression deformity in the L3 vertebral body. There are multilevel degenerative endplate marrow changes. Bone marrow signal is heterogeneous otherwise within normal limits. The conus medullaris terminates at a normal level and the nerve roots of cauda equina are normal. T12-L1: No disc herniation, spinal canal stenosis or neural foraminal narrowing. L1-2: No disc herniation, spinal canal stenosis or neural foraminal narrowing. L2-3: Diffuse posterior disc bulge without central spinal canal stenosis. Mild bilateral facet arthropathy contribute to mild neural foraminal narrowing. L3-4: Diffuse posterior disc bulge without central spinal canal stenosis. Moderate bilateral facet arthropathy contribute to moderate to severe neural foraminal narrowing. L4-5: Diffuse posterior disc bulge in conjunction with mild ligamentum flavum infolding result in mild spinal canal stenosis. Severe bilateral facet arthropathy contribute to severe right and moderate to severe left neural foraminal narrowing. L5-S1: Posterior disc bulge without spinal canal stenosis or neural foraminal narrowing. OTHER FINDINGS: There is fatty atrophy of the paraspinous muscles. There is a large simple cyst in the upper pole of the left kidney. IMPRESSION: 1. Acute superior endplate compression fracture in the L1 vertebral body with approximately 10 percent loss of vertebral height without retropulsion. 2. Multilevel degenerative disc disease, worse at L4-5 with a diffuse posterior disc bulge, mild spinal canal stenosis, severe right and moderate to severe left neural foraminal narrowing.
--- NOTE | 2018-12-29 14:40 | PQF ---
PROVIDER RESPONSE TEXT: Provider was unable to determine a response for this query. REVIEWER QUERY TEXT: Clinical Significance The diagnosis documented below requires documentation to state the clinical significance: Etiology of Fall Please document the diagnosis that best indicate the clinical picture of the Patient -- Fall secondary to Dehydration -- Fall secondary to Gait Dysfunction -- Fall secondary to Acute CVA -- Unable to determine clinical significance -- Other, please specify The patient's Clinical Indicators include: 83 F, found on the floor, Dx: Fall, Rhabdomyolysis, Compression fracture of T11 vertebra, Ambulatory dysfunction, Dehydration Clinical Indicator: ct Head: Bilateral basal ganglia lacunar infarcts. Risk Factor: HTN MEDS: enoxaparin, lrs, lisinopril Query created by: Usha Kim on 12/26/2018 7:26 PM Electronically signed by: Alejandro Valdivia MD 12/29/2018 2:36 PM
--- NOTE | 2018-12-29 19:04 | CP.PCM.PN ---
Subjective - Date & Time of Evaluation Date of Evaluation: 12/29/18 Time of Evaluation: 08:20 - Subjective Subjective: dictated Objective - Vital Signs/Intake and Output Vital Signs (last 24 hours): Temp Pulse Resp BP Pulse Ox 97.6 F 67 20 152/58 H 97 12/29/18 09:22 12/29/18 09:22 12/29/18 09:22 12/29/18 09:22 12/29/18 09:22 Intake and Output: 12/29/18 12/30/18 18:59 06:59 Intake Total 560 Balance 560 - Medications Medications: Current Medications Acetaminophen (Tylenol 325mg Tab) 650 mg PO Q6 PRN PRN Reason: Pain, moderate (4-7) Last Admin: 12/29/18 15:58 Dose: 650 mg Aspirin (Aspirin Chewable) 81 mg PO DAILY [facility] Last Admin: 12/29/18 11:07 Dose: Not Given Enoxaparin Sodium (Lovenox) 30 mg SC DAILY [facility] Last Admin: 12/29/18 11:07 Dose: Not Given Lisinopril (Zestril) 10 mg PO DAILY [facility] Last Admin: 12/29/18 18:13 Dose: 10 mg Lorazepam (Ativan) 1 mg IVP ONCE PRN PRN Reason: Agitation Last Admin: 12/29/18 08:43 Dose: 1 mg Rosuvastatin Calcium (Crestor) 2.5 mg PO HS [facility] Last Admin: 12/28/18 22:24 Dose: 2.5 mg Senna/Docusate Sodium (Senokot S 50 Mg-8.6 Mg) 1 tab PO DAILY [facility] Last Admin: 12/29/18 11:07 Dose: Not Given - Labs Labs: 12/29/18 06:26 12/29/18 06:26 PT 11.9 SECONDS (9.7-12.2) 12/25/18 23:59 INR 1.1 12/25/18 23:59 APTT 31 SECONDS (21-34) 12/25/18 23:59
[2018-12-29] MEDS: Rosuvastatin Calcium 2.5 mg Tab PO SCH (21:55)
--- NOTE | 2018-12-30 02:30 | PN ---
DATE: 12/29/2018 SUBJECTIVE: The patient is more alert. No fever. No chills. No nausea or vomiting. She is tolerating her diet. No cough. No sore throat. PHYSICAL EXAMINATION: VITAL SIGNS: Blood pressure is 152/58, pulse 67, respiratory rate 20, and temperature 97.6. LUNGS: Clear. CARDIOVASCULAR SYSTEM: S1 and S2, regular. ABDOMEN: Soft. ASSESSMENT: 1. Status post altered mental status, fall. 2. Dehydration. 3. Hypertension. PLAN: Admit. Monitor patient. Alejandro Valdivia MD
--- NOTE | 2018-12-30 08:26 | CP.PCM.PN ---
Subjective - Date & Time of Evaluation Date of Evaluation: 12/30/18 Time of Evaluation: 08:25 - Subjective Subjective: pt finally had mri compression fractures subacute no surgical intervention indicated suggest mobilization, PT and appropriate level of analgesics Objective - Vital Signs/Intake and Output Vital Signs (last 24 hours): Temp Pulse Resp BP Pulse Ox 97.9 F 66 20 139/62 96 12/30/18 00:30 12/30/18 00:30 12/30/18 00:30 12/30/18 00:30 12/30/18 00:30 Intake and Output: 12/30/18 12/30/18 06:59 18:59 Intake Total 1520 Balance 1520 - Medications Medications: Current Medications Acetaminophen (Tylenol 325mg Tab) 650 mg PO Q6 PRN PRN Reason: Pain, moderate (4-7) Last Admin: 12/30/18 00:32 Dose: 650 mg Aspirin (Aspirin Chewable) 81 mg PO DAILY [facility] Last Admin: 12/29/18 11:07 Dose: Not Given Enoxaparin Sodium (Lovenox) 30 mg SC DAILY [facility] Last Admin: 12/29/18 11:07 Dose: Not Given Lisinopril (Zestril) 10 mg PO DAILY [facility] Last Admin: 12/29/18 18:13 Dose: 10 mg Lorazepam (Ativan) 1 mg IVP ONCE PRN PRN Reason: Agitation Last Admin: 12/29/18 08:43 Dose: 1 mg Rosuvastatin Calcium (Crestor) 2.5 mg PO HS [facility] Last Admin: 12/29/18 21:55 Dose: 2.5 mg Senna/Docusate Sodium (Senokot S 50 Mg-8.6 Mg) 1 tab PO DAILY [facility] Last Admin: 12/29/18 11:07 Dose: Not Given - Labs Labs: 12/29/18 06:26 12/29/18 06:26 PT 11.9 SECONDS (9.7-12.2) 12/25/18 23:59 INR 1.1 12/25/18 23:59 APTT 31 SECONDS (21-34) 12/25/18 23:59
[2018-12-30] MEDS: Docusate-Senna 50 mg-8.6 mg Tab PO SCH (10:21)
[2018-12-30] MEDS: Enoxaparin 30 mg Syringe SC SCH (10:21)
[2018-12-30] MEDS: Lactated Ringer's 1,000 ML IV SCH (13:11)
--- NOTE | 2018-12-30 21:48 | CP.PCM.PN ---
Subjective - Date & Time of Evaluation Date of Evaluation: 12/30/18 Time of Evaluation: 08:40 - Subjective Subjective: dictated Objective - Vital Signs/Intake and Output Vital Signs (last 24 hours): Temp Pulse Resp BP Pulse Ox 97.9 F 66 20 138/76 96 12/30/18 00:30 12/30/18 00:30 12/30/18 00:30 12/30/18 10:00 12/30/18 00:30 - Medications Medications: Current Medications Acetaminophen (Tylenol 325mg Tab) 650 mg PO Q6 PRN PRN Reason: Pain, moderate (4-7) Last Admin: 12/30/18 00:32 Dose: 650 mg Aspirin (Aspirin Chewable) 81 mg PO DAILY [facility] Last Admin: 12/30/18 10:21 Dose: 81 mg Enoxaparin Sodium (Lovenox) 30 mg SC DAILY [facility] Last Admin: 12/30/18 10:21 Dose: 30 mg Lisinopril (Zestril) 10 mg PO DAILY [facility] Last Admin: 12/30/18 10:21 Dose: 10 mg Lorazepam (Ativan) 1 mg IVP ONCE PRN PRN Reason: Agitation Last Admin: 12/29/18 08:43 Dose: 1 mg Rosuvastatin Calcium (Crestor) 2.5 mg PO HS [facility] Last Admin: 12/29/18 21:55 Dose: 2.5 mg Senna/Docusate Sodium (Senokot S 50 Mg-8.6 Mg) 1 tab PO DAILY [facility] Last Admin: 12/30/18 10:21 Dose: 1 tab - Labs Labs: 12/29/18 06:26 12/29/18 06:26 PT 11.9 SECONDS (9.7-12.2) 12/25/18 23:59 INR 1.1 12/25/18 23:59 APTT 31 SECONDS (21-34) 12/25/18 23:59
[2018-12-31] MEDS: Rosuvastatin Calcium 2.5 mg Tab PO SCH ×2 (00:06→00:08)
[2018-12-31] MEDS: Lactated Ringer's 1,000 ML IV SCH (02:40)
--- NOTE | 2018-12-31 06:57 | PN ---
DATE: 12/30/2018 SUBJECTIVE: The patient is afebrile, more alert, better appetite. No nausea or vomiting. No chest pain. No cough. No dizziness. She is on physiotherapy. She is forgetful. PHYSICAL EXAMINATION: VITAL SIGNS: Blood pressure 138/76, pulse 66, respiratory rate 20, temperature 97.9. LUNGS: Clear. No rales. No rhonchi. CARDIOVASCULAR SYSTEM: PMI not localized. S1 and S2. Regular. No heave noted. ABDOMEN: Soft and nontender. Bowel sounds are positive. ASSESSMENT: 1. Fall with memory loss in an 83-year-old female. Magnetic resonance imaging is negative for stroke. She has atherosclerosis extensively. 2. Hypertension. 3. Poor oral intake, dehydration and weight loss. PLAN: Continue current medications. Subacute rehab. Alejandro Valdivia MD
[2018-12-31 08:14] VITALS: PULSE 71; TEMP 98; O2SAT 99
[2018-12-31] MEDS: Docusate-Senna 50 mg-8.6 mg Tab PO SCH (09:43)
[2018-12-31] MEDS: Enoxaparin 30 mg Syringe SC SCH (09:43)
--- NOTE | 2018-12-31 12:47 | CP.PCM.PN ---
Subjective - Date & Time of Evaluation Date of Evaluation: 12/31/18 Time of Evaluation: 11:15 - Subjective Subjective: Patient seen today awake , alert, oriented to person, confused , comfortable in bed , c/o back pain upon movement vss stable a febrile Objective - Vital Signs/Intake and Output Vital Signs (last 24 hours): Temp Pulse Resp BP Pulse Ox 98 F 71 20 196/69 H 99 12/31/18 07:00 12/31/18 07:00 12/31/18 07:00 12/31/18 07:00 12/31/18 07:00 Intake and Output: 12/31/18 12/31/18 06:59 18:59 Intake Total 1620 Balance 1620 - Medications Medications: Current Medications Acetaminophen (Tylenol 325mg Tab) 650 mg PO Q6 PRN PRN Reason: Pain, moderate (4-7) Last Admin: 12/30/18 00:32 Dose: 650 mg Aspirin (Aspirin Chewable) 81 mg PO DAILY [facility] Last Admin: 12/31/18 09:43 Dose: 81 mg Enoxaparin Sodium (Lovenox) 30 mg SC DAILY [facility] Last Admin: 12/31/18 09:43 Dose: 30 mg Lisinopril (Zestril) 10 mg PO DAILY [facility] Last Admin: 12/31/18 09:43 Dose: 10 mg Lorazepam (Ativan) 1 mg IVP ONCE PRN PRN Reason: Agitation Last Admin: 12/29/18 08:43 Dose: 1 mg Rosuvastatin Calcium (Crestor) 2.5 mg PO HS [facility] Last Admin: 12/31/18 00:08 Dose: Not Given Senna/Docusate Sodium (Senokot S 50 Mg-8.6 Mg) 1 tab PO DAILY [facility] Last Admin: 12/31/18 09:43 Dose: 1 tab - Labs Labs: 12/29/18 06:26 12/29/18 06:26 PT 11.9 SECONDS (9.7-12.2) 12/25/18 23:59 INR 1.1 12/25/18 23:59 APTT 31 SECONDS (21-34) 12/25/18 23:59 Assessment and Plan - Assessment and Plan (Free Text) Assessment: A/P 83 year old female is brought to the ED by EMS for evaluation. Patient was found on the floor of her home by EMS admitted with s/p Fall, Rhabdomyolysis, Compression fracture of T11 vertebra, Ambulatory dysfunction, Dehydration CPK improved with IV hydration DR. Peng consulted for compression fracture , recommends compression fractures subacute no surgical intervention indicated suggest mobilization, PT and appropriate level of analgesics MRI- negative acute infarct echo -EF >70 % Patient accepted to [facility] for rehab D/W Dr. Choudhary cleared for discharge to [facility] today and Dr. Hedrick will follow the patient at [facility]
[2018-12-31 14:02] VITALS: BP 147/68
[2018-12-31 14:13] LABS: BASO # 0.1 K/uL (0.0-0.2); EOS # 0.2 K/uL (0.0-0.7); MONO # 0.7 K/uL (0.0-0.8)
[2018-12-31 14:25] LABS: HEMOGLOBIN 12.2 g/dL (11.0-16.0)
[2018-12-31 14:27] LABS: BASO % 1.3 % (0.0-2.0); EOS % 2.4 % (0.0-4.0); LYMPH # 1.9 K/uL (1.0-4.3); LYMPH % 24.4 % (20.0-40.0); MEAN CELL VOLUME 90.1 fL (81.0-99.0); MEAN CORPUSCULAR HEMOGLOBIN 30.5 pg (27.0-31.0); MEAN CORPUSCULAR HGB CONC 33.9 g/dL (33.0-37.0); MEAN PLATELET VOLUME 9.8 fL (7.2-11.7); MONO % 8.9 % (0.0-10.0); NEUT # 4.9 K/uL (1.8-7.0); NRBC % 0.1 % (0.0-2.0); RBC 4.01 Mil/uL (3.80-5.20); RED CELL DISTRIBUTION WIDTH 13.8 % (11.5-14.5); WHITE BLOOD COUNT 7.8 K/uL (4.8-10.8)
[2018-12-31 14:45] LABS: BLOOD UREA NITROGEN 12 mg/dL (7-17); CALCIUM 9.2 mg/dl (8.6-10.4); GFR NON-AFRICAN AMERICAN > 60
--- NOTE | 2018-12-31 22:56 | CP.PCM.DIS ---
Provider - Provider Date of Admission: 12/26/18 04:20 Attending physician: Alejandro Valdivia MD Consults: 12/26/18 11:58 Physician Consult Routine Comment: Consulting Provider: Marcos Peng Consulting Physician: Marcos Peng Reason for Consult: T12 compression fx Time Spent in preparation of Discharge (in minutes): 30 Hospital Course - Lab Results Lab Results: Most Recent Lab Values WBC 7.8 K/uL (4.8-10.8) 12/31/18 14:04 RBC 4.01 Mil/uL (3.80-5.20) 12/31/18 14:04 Hgb 12.2 g/dL (11.0-16.0) 12/31/18 14:04 Hct 36.1 % (34.0-47.0) 12/31/18 14:04 MCV 90.1 fL (81.0-99.0) 12/31/18 14:04 MCH 30.5 pg (27.0-31.0) 12/31/18 14:04 MCHC 33.9 g/dL (33.0-37.0) 12/31/18 14:04 RDW 13.8 % (11.5-14.5) 12/31/18 14:04 Plt Count 250 K/uL (130-400) 12/31/18 14:04 MPV 9.8 fL (7.2-11.7) 12/31/18 14:04 Neut % (Auto) 63.0 % (50.0-75.0) 12/31/18 14:04 Lymph % (Auto) 24.4 % (20.0-40.0) 12/31/18 14:04 [place] % (Auto) 8.9 % (0.0-10.0) 12/31/18 14:04 Eos % (Auto) 2.4 % (0.0-4.0) 12/31/18 14:04 Baso % (Auto) 1.3 % (0.0-2.0) 12/31/18 14:04 Neut # (Auto) 4.9 K/uL (1.8-7.0) 12/31/18 14:04 Lymph # (Auto) 1.9 K/uL (1.0-4.3) 12/31/18 14:04 [place] # (Auto) 0.7 K/uL (0.0-0.8) 12/31/18 14:04 Eos # (Auto) 0.2 K/uL (0.0-0.7) 12/31/18 14:04 Baso # (Auto) 0.1 K/uL (0.0-0.2) 12/31/18 14:04 Neutrophils % (Manual) 88 % (50-75) H 12/25/18 23:59 Lymphocytes % (Manual) 5 % (20-40) L 12/25/18 23:59 Monocytes % (Manual) 7 % (0-10) 12/25/18 23:59 Hypersegmented Polys Present 12/25/18 23:59 Platelet Estimate Normal (NORMAL) 12/25/18 23:59 PT 11.9 SECONDS (9.7-12.2) 12/25/18 23:59 INR 1.1 12/25/18 23:59 APTT 31 SECONDS (21-34) 12/25/18 23:59 pO2 25 mm/Hg (30-55) L 12/26/18 00:29 VBG pH 7.41 (7.32-7.43) 12/26/18 00:29 VBG pCO2 43 mmHg (40-60) 12/26/18 00:29 VBG HCO3 25.2 mmol/L 12/26/18 00:29 VBG Total CO2 28.6 mmol/L (22-28) H 12/26/18 00:29 VBG O2 Sat (Calc) 47.0 % (40-65) 12/26/18 00:29 VBG Base Excess 2.2 mmol/L (0.0-2.0) H 12/26/18 00:29 VBG Potassium 7.1 mmol/L (3.6-5.2) H* 12/26/18 00:29 Sodium 138.0 mmol/l (132-148) 12/26/18 00:29 Chloride 107.0 mmol/L (98-107) 12/26/18 00:29 Glucose 136 mg/dl (65-105) H 12/26/18 00:29 Lactate 1.8 mmol/L (0.7-2.1) 12/26/18 00:29 Crit Value Called To Melyssa roach rn 12/26/18 00:29 Crit Value Called By Vanessa castro rt 12/26/18 00:29 Crit Value Read Back Y 12/26/18 00:29 Blood Gas Notified Time 41 12/26/18 00:29 Sodium 137 mmol/L (132-148) 12/31/18 14:04 Potassium 3.9 mmol/L (3.6-5.2) 12/31/18 14:04 Chloride 104 mmol/L (98-107) 12/31/18 14:04 Carbon Dioxide 29 mmol/L (22-30) 12/31/18 14:04 Anion Gap 8 (10-20) L 12/31/18 14:04 BUN 12 mg/dL (7-17) 12/31/18 14:04 Creatinine 0.6 mg/dL (0.7-1.2) L 12/31/18 14:04 Est GFR ( Amer) > 60 12/31/18 14:04 Est GFR (Non-Af Amer) > 60 12/31/18 14:04 Random Glucose 85 mg/dL (65-105) D 12/31/18 14:04 Calcium 9.2 mg/dl (8.6-10.4) 12/31/18 14:04 Magnesium 2.5 mg/dL (1.6-2.3) H 12/25/18 23:59 Total Bilirubin 0.6 mg/dL (0.2-1.3) 12/29/18 06:26 AST 33 U/L (14-36) 12/29/18 06:26 ALT 25 U/L (9-52) 12/29/18 06:26 Alkaline Phosphatase 52 U/L (38-126) 12/29/18 06:26 Total Creatine Kinase 102 U/L (30-135) 12/28/18 08:05 Total Protein 6.1 g/dL (6.3-8.3) L 12/29/18 06:26 Albumin 3.3 g/dL (3.5-5.0) L D 12/29/18 06:26 Globulin 2.8 gm/dL (2.2-3.9) 12/29/18 06:26 Albumin/Globulin Ratio 1.2 (1.0-2.1) 12/29/18 06:26 Lipase 78 U/L (23-300) 12/25/18 23:59 Vitamin B12 401 pg/mL (239-931) 12/28/18 08:05 TSH 3rd Generation 2.14 mIU/L (0.46-4.68) 12/28/18 08:05 Venous Blood Potassium 7.1 mmol/L (3.6-5.2) H* 12/26/18 00:29 Urine Color Lindy (YELLOW) 12/26/18 20:34 Urine Clarity Hazy (Clear) 12/26/18 20:34 Urine pH 5.0 (5.0-8.0) 12/26/18 20:34 Ur Specific [place] 1.030 (1.003-1.030) 12/26/18 20:34 Urine Protein 2+ mg/dL (NEGATIVE) H 12/26/18 20:34 Urine Glucose (UA) Normal mg/dL (Normal) 12/26/18 20:34 Urine Ketones Trace mg/dL (NEGATIVE) 12/26/18 20:34 Urine Blood 2+ (NEGATIVE) H 12/26/18 20:34 Urine Nitrate Negative (NEGATIVE) 12/26/18 20:34 Urine Bilirubin Negative (NEGATIVE) 12/26/18 20:34 Urine Urobilinogen 2.0 mg/dL (0.2-1.0) H 12/26/18 20:34 Ur Leukocyte Esterase Neg Yvonne/uL (Negative) 12/26/18 20:34 Urine WBC (Auto) 3 /hpf (0-5) 12/26/18 20:34 Urine RBC (Auto) 14 /hpf (0-3) H 12/26/18 20:34 Ur Squamous Epith Cells 5 /hpf (0-5) 12/26/18 20:34 Blood Type A POSITIVE 12/25/18 23:09 Antibody Screen Negative 12/25/18 23:09 Discharge Plan - Follow Up Plan Condition: FAIR Disposition: REHAB FACILITY/REHAB UNIT Instructions: Heart Healthy Diet, Preventing Falls in the Older Adult, Dehydration, Adult (DC), Vertebral Compression Fracture (DC), Rhabdomyolysis (DC) Additional Instructions: Please admit patient under Dr. Valdivia service - Call Dr. Valdivia upon patient arrival to [facility] facility Please continue medication as per med. rec. Referrals: Alejandro Valdivia MD [Staff Provider] -
--- NOTE | 2019-01-01 23:33 | DS ---
DISCHARGE DIAGNOSES: 1. Syncope. 2. Hypertension. 3. Atherosclerosis. 4. Dementia. HISTORY OF PRESENT ILLNESS AND HOSPITAL COURSE: This is an 83-year-old white female with history of fall with loss of consciousness. She was transferred to emergency room. MRI of the brain was negative. In the beginning, she was agitated, restless, terribly confused. The patient was given neuro check, fall and seizure precautions. She did well. She is for discharge to subacute rehab. Right now, she is more awake, alert. She is eating well. PHYSICAL EXAMINATION: VITAL SIGNS: Blood pressure 147/60, pulse 71, respiratory rate 20, temperature 98. LUNGS: Clear. No rales. No rhonchi. CARDIOVASCULAR SYSTEM: PMI not localized. S1 and S2, regular. ABDOMEN: Soft, nontender. Bowel sounds are positive. Alejandro Valdivia MD
== END 2018-12-31 15:25 | DRG 557 ==
LOC: C.ER 22:19 → C.9E 12-26 04:20 → C.6T 12-26 05:52
PROVIDERS: ADMIT Internal Medicine; ATTEND Internal Medicine
DX: M62.82 Rhabdomyolysis (principal); G92 Toxic encephalopathy; R55 Syncope and collapse; E86.0 Dehydration; I10 Essential (primary) hypertension; E87.6 Hypokalemia; S40.011A Contusion of right shoulder, initial encounter; S22.089S Unspecified fracture of T11-T12 vertebra, sequela; S32.039S Unspecified fracture of third lumbar vertebra, sequela; W01.0XXA Fall on same level from slipping, tripping and stumbling without subsequent striking against object, initial encounter; G30.9 Alzheimer's disease, unspecified; F02.80 Dementia in other diseases classified elsewhere, unspecified severity, without behavioral disturbance, psychotic disturbance, mood disturbance, and anxiety; I67.2 Cerebral atherosclerosis; F01.50 Vascular dementia, unspecified severity, without behavioral disturbance, psychotic disturbance, mood disturbance, and anxiety; R63.4 Abnormal weight loss; R32 Unspecified urinary incontinence; Z68.24 Body mass index [BMI] 24.0-24.9, adult